=== PATIENT | male | born 1960 | race African-American/Black ===

== ENCOUNTER 2017-12-08 11:02 | Emergency (ER) | payer OTHER ==
[~2017-12-08] VITALS: Ht 167.6 cm; Wt 70.0 kg
[2017-12-08 12:18] LABS: CHLORIDE 108 mEq/L (98-107)
[2017-12-08 12:21] LABS: BASOPHILS % 0.8 % (0.0-2.0); EOSINOPHILS % 1.3 % (0.0-5.0); HEMATOCRIT. 28.5 % (42.0-52.0); HEMOGLOBIN. 9.4 g/dL (14.0-18.0); MEAN CORPUSCULAR HEMOGLOBIN 27.3 pg (28.0-32.0); MEAN CORPUSCULAR VOLUME 82.2 fL (80.0-94.0); MEAN PLATELET VOLUME 7.5 fl (7.4-10.4); MONOCYTES % 5.5 % (2.0-8.0); NEUTROPHILS % 70.4 % (40.0-76.0); PLATELET 195 x1000/uL (130-400); RED BLOOD CELL COUNT 3.46 mill/uL (4.7-6.1); RED CELL DISTRIBUTION WIDTH 14.2 % (11.6-14.6)
[2017-12-08 15:46] VITALS: BP 150/85
== END 2017-12-08 15:47 | disposition home or self-care (01) ==
LOC: ER 11:20
DX: E11.649 Type 2 diabetes mellitus with hypoglycemia without coma (principal); I10 Essential (primary) hypertension
CPT/HCPCS: 36415; 80053; 82962; 85025; 93005; 99285; Z7610

== ENCOUNTER 2018-10-28 22:14 | Inpatient (IN) | payer OTHER ==
[~2018-10-28] VITALS: Ht 163.8 cm; Wt 75.9 kg
[2018-10-28 23:38] LABS: INR 1.1
[2018-10-28 23:39] LABS: CHLORIDE 107 mEq/L (98-107)
[2018-10-28 23:45] LABS: ETHANOL BLOOD < 10 mg/dL
[2018-10-28 23:47] LABS: BASOPHILS % 1.1 % (0.0-2.0); EOSINOPHILS % 3.9 % (0.0-5.0); HEMATOCRIT. 29.6 % (42.0-52.0); HEMOGLOBIN. 9.7 g/dL (14.0-18.0); LYMPHOCYTES % 22.8 % (20.0-50.0); MEAN CORPUSCULAR HEMOGLOBIN 27.7 pg (28.0-32.0); MEAN CORPUSCULAR VOLUME 84.6 fL (80.0-94.0); MEAN PLATELET VOLUME 7.6 fl (7.4-10.4); MONOCYTES % 6.1 % (2.0-8.0); NEUTROPHILS % 66.1 % (40.0-76.0); PLATELET 226 x1000/uL (130-400); RED CELL DISTRIBUTION WIDTH 15.6 % (11.6-14.6)
[2018-10-29 03:15] VITALS: BP 197/94
[2018-10-29 03:43] LABS: CLARITY URINE CLEAR (CLEAR); COLOR URINE YELLOW (YELLOW); KETONES URINE NEGATIVE (NEGATIVE); LEUKOCYTE ESTERASE URINE NEGATIVE (NEGATIVE); NITRITE URINE NEGATIVE (NEGATIVE); OCCULT BLOOD URINE 1+ (NEGATIVE); PH URINE 7.5 (4.5-8.0); PROTEIN URINE 4+ (NEGATIVE); SPECIFIC GRAVITY URINE 1.015 (1.005-1.030); UROBILINOGEN URINE 0.2 E.U./dL (0.2-1.0)
[2018-10-29 03:52] LABS: *AMPHETAMINES SCREEN URINE NEGATIVE (NEGATIVE); *BARBITURATES SCREEN URINE NEGATIVE (NEGATIVE); *BENZODIAZEPINES SCREEN URINE NEGATIVE (NEGATIVE); *COCAINE SCREEN URINE NEGATIVE (NEGATIVE); METHADONE URINE SCREEN NEGATIVE (NEGATIVE)
[2018-10-29 03:53] LABS: CANNABINOID URINE SCREEN NEGATIVE (NEGATIVE); OPIATES URINE SCREEN NEGATIVE (NEGATIVE); PHENCYCLIDINE URINE SCREEN NEGATIVE (NEGATIVE)
[2018-10-29] MEDS ORDERED: AMLODIPINE DAILY (04:06)
[2018-10-29] MEDS ORDERED: ATORVASTATIN DAILY (04:06)
[2018-10-29] MEDS ORDERED: CARVEDILOL (04:06)
[2018-10-29] MEDS ORDERED: [UNRECOGNIZED DRUG - OTHER] (04:06)
[2018-10-29] MEDS ORDERED: [UNRECOGNIZED DRUG - OTHER] (04:06)
[2018-10-29] MEDS ORDERED: ASPI-1159 MT (04:06)
[2018-10-29] MEDS ORDERED: GUAIFENESIN 200MG/10ML SUGAR FREE UDC PO PRN (05:00)
[2018-10-29] MEDS ORDERED: DIPHENHYDRAMINE 50MG/ML VIAL IV PRN (05:00)
[2018-10-29] MEDS ORDERED: DOCUSATE SODIUM 100MG CAPSULE PO PRN (05:00)
[2018-10-29] MEDS ORDERED: ACETAMINOPHEN 325MG TABLET PO PRN (05:00)
[2018-10-29] MEDS ORDERED: ENOXAPARIN 40MG/0.4ML SYR SUBCUT SCH (05:00)
[2018-10-29] MEDS ORDERED: LORAZEPAM 2MG/ML CPJ IV PRN (05:00)
[2018-10-29] MEDS ORDERED: DEXTROSE 50% WATER 50ML SYRINGE IV PRN (05:00)
[2018-10-29] MEDS ORDERED: HYDROMORPHONE HCL/PF 2MG/ML CPJ IV PRN (05:00)
[2018-10-29] MEDS ORDERED: ONDANSETRON HCL 4MG/2ML INJ IV PRN (05:00)
[2018-10-29] MEDS ORDERED: MAGNESIUM/ALUMINUM HYDROXIDE/SIMETHICONE 30ML UDC PO PRN (05:00)
[2018-10-29] MEDS ORDERED: CLONIDINE 0.1MG TABLET PO PRN (05:00)
[2018-10-29] MEDS ORDERED: IPRATROPIUM/ALBUTEROL 0.5-3(2.5)MG/3ML NEB INH PRN (05:00)
[2018-10-29] MEDS ORDERED: HYDROCODONE/ACETAMINOPHEN 5/325MG TABLET PO PRN (05:00)
[2018-10-29] MEDS: HYDRALAZINE 20MG/ML VIAL IV PRN ×2 (05:23→11:50)
[2018-10-29] MEDS: SODIUM CHLORIDE 0.9% INJ 3ML FLUSH IVF SCH ×2 (05:23→11:50)
[2018-10-29] MEDS: BLOOD SUGAR DIAGNOSTIC STRIP TEST SCH ×2 (06:34→11:50)
[2018-10-29] MEDS: INSULIN LISPRO 100 UNITS/ML SUBCUT SCH ×2 (07:37→11:53)
[2018-10-29 07:56] VITALS: BP 171/85
[2018-10-29] MEDS ORDERED: CLONIDINE 0.3MG TABLET PO PRN (08:45)
[2018-10-29] MEDS ORDERED: ENOXAPARIN 30MG/0.3ML SYR SUBCUT SCH (09:00)
[2018-10-29] MEDS ORDERED: AMLODIPINE 10MG TABLET PO SCH (09:00)
[2018-10-29] MEDS ORDERED: ASPIRIN 81MG EC TABLET PO SCH (09:00)
[2018-10-29 09:16] LABS: CREATINE KINASE MB FRACTION 5.3 ng/mL (0.5-3.6)
[2018-10-29 12:02] VITALS: BP 170/74
== END 2018-10-29 14:10 | disposition left against medical advice (07) | DRG 637 ==
LOC: ER 22:14 → 6WST 10-29 00:33 → ENRESERV 10-29 02:34
PROVIDERS: ADMIT Internal Medicine; ATTEND Internal Medicine
DX: E11.649 Type 2 diabetes mellitus with hypoglycemia without coma (principal); G93.41 Metabolic encephalopathy; I13.0 Hypertensive heart and chronic kidney disease with heart failure and stage 1 through stage 4 chronic kidney disease, or unspecified chronic kidney disease; Z53.21 Procedure and treatment not carried out due to patient leaving prior to being seen by health care provider; I25.10 Atherosclerotic heart disease of native coronary artery without angina pectoris; I50.9 Heart failure, unspecified; D64.9 Anemia, unspecified; T50.905A Adverse effect of unspecified drugs, medicaments and biological substances, initial encounter; N18.9 Chronic kidney disease, unspecified; E11.22 Type 2 diabetes mellitus with diabetic chronic kidney disease; Z79.82 Long term (current) use of aspirin; Z79.899 Other long term (current) drug therapy; Z79.4 Long term (current) use of insulin; Y92.89 Other specified places as the place of occurrence of the external cause
CPT/HCPCS: 36415; 71045; 80305; 82550; 82553; 82962; 83605; 83880; 84484; 93005; 99285; G0482; J0360; J1650; J1815

== ENCOUNTER 2018-12-27 11:04 | Emergency (ER) | payer OTHER ==
[~2018-12-27] VITALS: Ht 165.1 cm; Wt 80.0 kg
[~2018-12-27 11:04] MED LIST: AMLODIPINE DAILY; ASPI-1159 MT; ATORVASTATIN DAILY; CARVEDILOL; [UNRECOGNIZED DRUG - OTHER]; [UNRECOGNIZED DRUG - OTHER]
[2018-12-27] MEDS ORDERED: SODIUM CHLORIDE 0.9% 500 ML IV ONE (11:35)
[2018-12-27 11:55] LABS: BASOPHILS % 1.3 % (0.0-2.0); EOSINOPHILS % 0.1 % (0.0-5.0); HEMATOCRIT. 32.3 % (42.0-52.0); HEMOGLOBIN. 10.8 g/dL (14.0-18.0); LYMPHOCYTES % 13.2 % (20.0-50.0); MEAN CORPUSCULAR HEMOGLOBIN 27.7 pg (28.0-32.0); MEAN CORPUSCULAR VOLUME 83.5 fL (80.0-94.0); MEAN PLATELET VOLUME 7.9 fl (7.4-10.4); MONOCYTES % 5.9 % (2.0-8.0); NEUTROPHILS % 79.5 % (40.0-76.0); PLATELET 189 x1000/uL (130-400); RED BLOOD CELL COUNT 3.88 mill/uL (4.7-6.1); RED CELL DISTRIBUTION WIDTH 14.7 % (11.6-14.6)
[2018-12-27 12:01] LABS: CHLORIDE 93 mEq/L (98-107)
[2018-12-27 12:08] LABS: PHOSPHORUS 3.5 mg/dL (2.5-4.9)
[2018-12-27 12:16] LABS: PARTIAL THROMBOPLASTIN TIME 25.9 sec (23.4-31.0)
[2018-12-27] MEDS ORDERED: INSULIN REGULAR (HUMULIN R) 300UNITS/3ML IV ONE (12:30)
[2018-12-27] MEDS ORDERED: HYDRALAZINE 20MG/ML VIAL IV ONE (12:30)
[2018-12-27] MEDS ORDERED: NA PHOS,M-B/NA PHOS,DI-BA ENEMA 118ML PR PRN (12:45)
[2018-12-27] MEDS ORDERED: DOCUSATE SODIUM 100MG CAPSULE PO PRN (12:45)
[2018-12-27] MEDS ORDERED: TRAMADOL 50MG TABLET PO PRN (12:45)
[2018-12-27] MEDS ORDERED: GUAIFENESIN 200MG/10ML SUGAR FREE UDC PO PRN (12:45)
[2018-12-27] MEDS ORDERED: ONDANSETRON HCL 4MG/2ML INJ IV PRN (12:45)
[2018-12-27] MEDS ORDERED: ZOLPIDEM TARTRATE 5MG TABLET PO PRN (12:45)
[2018-12-27] MEDS ORDERED: LORAZEPAM 0.5MG TABLET PO PRN (12:45)
[2018-12-27] MEDS ORDERED: MAGNESIUM/ALUMINUM HYDROXIDE/SIMETHICONE 30ML UDC PO PRN (12:45)
[2018-12-27] MEDS ORDERED: IPRATROPIUM/ALBUTEROL 0.5-3(2.5)MG/3ML NEB INH PRN (12:45)
[2018-12-27] MEDS ORDERED: ACETAMINOPHEN 325MG TABLET PO PRN (12:45)
[2018-12-27] MEDS ORDERED: DIPHENHYDRAMINE 50MG/ML VIAL IV PRN (12:45)
[2018-12-27] MEDS ORDERED: NITROGLYCERIN 0.4MG TABLET SL SL PRN (12:45)
[2018-12-27] MEDS ORDERED: CLONIDINE 0.1MG TABLET PO PRN (12:45)
[2018-12-27 15:03] LABS: CREATINE KINASE MB FRACTION 3.4 ng/mL (0.5-3.6)
[2018-12-27 15:23] VITALS: BP 134/75
[2018-12-27] MEDS ORDERED: DILTIAZEM HCL 60MG TABLET PO SCH (18:00)
[2018-12-27] MEDS ORDERED: FAMOTIDINE 20MG TABLET PO SCH (21:00)
[2018-12-27] MEDS ORDERED: ENOXAPARIN 60MG/0.6ML SYR SUBCUT SCH (21:00)
[2018-12-28] MEDS ORDERED: ASPIRIN 325MG EC TABLET PO SCH (09:00)
== END 2018-12-27 15:30 | disposition short-term general hospital (02) ==
LOC: ER 11:04
DX: I12.0 Hypertensive chronic kidney disease with stage 5 chronic kidney disease or end stage renal disease (principal); E11.22 Type 2 diabetes mellitus with diabetic chronic kidney disease; N18.6 End stage renal disease; E87.8 Other disorders of electrolyte and fluid balance, not elsewhere classified; Z99.2 Dependence on renal dialysis; Z79.82 Long term (current) use of aspirin; Z79.899 Other long term (current) drug therapy; Z98.890 Other specified postprocedural states; Z79.4 Long term (current) use of insulin
CPT/HCPCS: 36415; 71045; 80053; 80061; 82010; 82550; 82553; 82962; 83036; 83735; 83880; 84100; 84484; 85025; 85610; 85730; 93005; 96361; 96374; 96375; 99285; J0360; J1815; J7040

== ENCOUNTER 2019-10-06 22:30 | Emergency (ER) | payer OTHER ==
[~2019-10-06] VITALS: Ht 172.7 cm; Wt 72.0 kg
[~2019-10-06 22:30] MED LIST changes: -ASPI-1159 MT; +ASPI-1393 MT
[2019-10-06 23:55] LABS: BASOPHILS % 1.2 % (0.0-2.0); CHLORIDE 106 mEq/L (98-107); EOSINOPHILS % 2.8 % (0.0-5.0); HEMATOCRIT. 30.5 % (42.0-52.0); HEMOGLOBIN. 10.7 g/dL (14.0-18.0); LYMPHOCYTES % 15.7 % (20.0-50.0); MEAN CORPUSCULAR HEMOGLOBIN 30.2 pg (28.0-32.0); MEAN CORPUSCULAR VOLUME 86.1 fL (80.0-94.0); MEAN PLATELET VOLUME 7.2 fl (7.4-10.4); NEUTROPHILS % 68.3 % (40.0-76.0); PLATELET 230 x1000/uL (130-400); RED BLOOD CELL COUNT 3.54 mill/uL (4.7-6.1); RED CELL DISTRIBUTION WIDTH 14.8 % (11.6-14.6)
[2019-10-06 23:58] LABS: PROTHROMBIN TIME 10.7 sec (9.6-11.0)
[2019-10-07 00:43] VITALS: BP 189/86
== END 2019-10-07 01:33 | disposition home or self-care (01) ==
LOC: ER 22:30 → CANBEDREQ 10-07 01:10 → ER 10-07 01:33
DX: M79.632 Pain in left forearm (principal); M79.641 Pain in right hand; I13.2 Hypertensive heart and chronic kidney disease with heart failure and with stage 5 chronic kidney disease, or end stage renal disease; N18.6 End stage renal disease; I50.9 Heart failure, unspecified; Z99.2 Dependence on renal dialysis; Z79.82 Long term (current) use of aspirin
CPT/HCPCS: 36415; 71045; 83605; 83880; 84484; 93005; 93922; 99284

== ENCOUNTER 2019-10-22 19:50 | Emergency (ER) | payer OTHER ==
[~2019-10-22] VITALS: Ht 172.7 cm; Wt 73.0 kg
[2019-10-22 20:52] LABS: BASOPHILS % 0.8 % (0.0-2.0); EOSINOPHILS % 0.5 % (0.0-5.0); HEMOGLOBIN. 8.6 g/dL (14.0-18.0); LYMPHOCYTES % 16.7 % (20.0-50.0); MEAN CORPUSCULAR HEMOGLOBIN 30.2 pg (28.0-32.0); MEAN CORPUSCULAR VOLUME 87.3 fL (80.0-94.0); MEAN PLATELET VOLUME 7.5 fl (7.4-10.4); MONOCYTES % 8.6 % (2.0-8.0); NEUTROPHILS % 73.4 % (40.0-76.0); PLATELET 174 x1000/uL (130-400); RED BLOOD CELL COUNT 2.86 mill/uL (4.7-6.1); RED CELL DISTRIBUTION WIDTH 14.7 % (11.6-14.6)
[2019-10-22 21:02] LABS: CHLORIDE 100 mEq/L (98-107)
[2019-10-22] MEDS ORDERED: SODIUM CHLORIDE 0.9% 500 ML IV ONE (21:15)
[2019-10-22] MEDS ORDERED: INSULIN LISPRO 100 UNITS/ML SUBCUT ONE (21:15)
[2019-10-23 02:45] VITALS: BP 185/83
== END 2019-10-23 03:45 | disposition home or self-care (01) ==
LOC: ER 19:50
DX: E11.65 Type 2 diabetes mellitus with hyperglycemia (principal); I11.0 Hypertensive heart disease with heart failure; I50.9 Heart failure, unspecified; N28.9 Disorder of kidney and ureter, unspecified; Z99.2 Dependence on renal dialysis; Z79.82 Long term (current) use of aspirin; Z88.8 Allergy status to other drugs, medicaments and biological substances
CPT/HCPCS: 36415; 71045; 80053; 82962; 83880; 84484; 85025; 93005; 96360; 96361; 96372; 99284; J1815; J7040; Z7610

== ENCOUNTER 2019-11-06 14:20 | Inpatient (IN) | payer OTHER ==
[~2019-11-06] VITALS: Ht 177.8 cm; Wt 67.8 kg
[2019-11-06] MEDS ORDERED: LORAZEPAM 2MG/ML CPJ ONE (14:34)
[2019-11-06] MEDS ORDERED: LORAZEPAM 2MG/ML CPJ IV ONE (14:45)
[2019-11-06] MEDS ORDERED: VANCOMYCIN 1 G PREMIX 200 ML IV ONE (14:45)
[2019-11-06] MEDS ORDERED: LEVETIRACETAM 500MG PREMIX 100 ML IV ONE (14:45)
[2019-11-06] MEDS ORDERED: PIPERACILLIN/TAZ 3.375G PREMIX 50 ML IV ONE (14:45)
[2019-11-06] MEDS ORDERED: HYDRALAZINE 20MG/ML VIAL IV ONE (14:45)
[2019-11-06] MEDS ORDERED: PIPERACILLIN/TAZOBACTAM 3.375 G in DEXT 5% WATER 100 ML IV ONE (15:30)
[2019-11-06 15:41] LABS: BASOPHILS % 0.9 % (0.0-2.0); EOSINOPHILS % 0.3 % (0.0-5.0); HEMOGLOBIN. 10.5 g/dL (14.0-18.0); LYMPHOCYTES % 11.1 % (20.0-50.0); MEAN CORPUSCULAR VOLUME 100.4 fL (80.0-94.0); MEAN PLATELET VOLUME 8.9 fl (7.4-10.4); MONOCYTES % 2.6 % (2.0-8.0); NEUTROPHILS % 85.1 % (40.0-76.0); PLATELET 215 x1000/uL (130-400); RED BLOOD CELL COUNT 3.48 mill/uL (4.7-6.1); RED CELL DISTRIBUTION WIDTH 19.8 % (11.6-14.6)
[2019-11-06 15:44] LABS: CHLORIDE 95 mEq/L (98-107)
[2019-11-06 15:46] LABS: INR 1.1; PARTIAL THROMBOPLASTIN TIME 24.9 sec (23.4-31.0); PROTHROMBIN TIME 10.9 sec (9.6-11.0)
[2019-11-06 15:49] LABS: ETHANOL BLOOD < 10 mg/dL
[2019-11-06 15:51] LABS: LDL CHOLESTEROL 72 mg/dL (5-100)
[2019-11-06] MEDS ORDERED: SODIUM CHLORIDE 0.9% 1,000 ML IV ONE (15:55)
[2019-11-06 16:09] LABS: BG BASE EXCESS -11.9 mmol/L (-2.0-2.0); BG CARBOXYHEMOGLOBIN 0.8 % (0.5-1.5); BG DEOXYHEMOGLOBIN 8.4 % (0.0-5.0); BG FRACTION INSPIRED OXYGEN 100; BG HCO3 ACT 16.4 mmol/L (22.0-26.0); BG METHEMOGLOBIN 0.3 % (0.0-1.5); BG OXYGEN SATURATION 91.5 % (92.0-98.5); BG OXYHEMOGLOBIN 90.5 % (94.0-97.0); BG PO2 80.1 mmHg (75.0-100.0); BG SAMPLE SITE RIGHT RADIAL; BG TIDAL VOLUME(mL) 500 mL; BG TOTAL HEMOGLOBIN 11.3 g/dL (12.0-18.0); BG VENT MODE VENT - A/C; BG VENT RATE 14 set
[2019-11-06] MEDS ORDERED: ETOMIDATE 2MG/ML 10ML VIAL IV ONE (16:15)
[2019-11-06] MEDS ORDERED: PROPOFOL 10MG/ML 100ML 100 ML IV ONE (16:15)
[2019-11-06] MEDS ORDERED: VECURONIUM BROMIDE 10 MG/VIAL IV ONE (16:15)
[2019-11-06] MEDS ORDERED: SODIUM CHLORIDE 0.9% 1,000 ML IV STA (16:15)
[2019-11-06 16:26] LABS: CLARITY URINE CLEAR (CLEAR); COLOR URINE YELLOW (YELLOW); KETONES URINE 1+ (NEGATIVE); LEUKOCYTE ESTERASE URINE NEGATIVE (NEGATIVE); NITRITE URINE NEGATIVE (NEGATIVE); OCCULT BLOOD URINE 1+ (NEGATIVE); PROTEIN URINE 3+ (NEGATIVE); SPECIFIC GRAVITY URINE 1.022 (1.005-1.030); UROBILINOGEN URINE 0.2 E.U./dL (0.2-1.0)
[2019-11-06 16:38] LABS: *AMPHETAMINES SCREEN URINE NEGATIVE (NEGATIVE); *BARBITURATES SCREEN URINE NEGATIVE (NEGATIVE); *BENZODIAZEPINES SCREEN URINE NEGATIVE (NEGATIVE); *COCAINE SCREEN URINE NEGATIVE (NEGATIVE); METHADONE URINE SCREEN NEGATIVE (NEGATIVE)
[2019-11-06 16:39] LABS: CANNABINOID URINE SCREEN NEGATIVE (NEGATIVE); OPIATES URINE SCREEN NEGATIVE (NEGATIVE); PHENCYCLIDINE URINE SCREEN NEGATIVE (NEGATIVE)
[2019-11-06] MEDS ORDERED: INSULIN REGULAR (DRIP) 100 UNITS in SODIUM CHLORIDE 0.9% 100 ML IV NR (17:00)
[2019-11-06] MEDS ORDERED: IPRATROPIUM/ALBUTEROL 0.5-3(2.5)MG/3ML NEB HHN SCH (17:45)
[2019-11-06] MEDS ORDERED: NITROGLYCERIN 0.4MG TABLET SL SL PRN (17:45)
[2019-11-06] MEDS ORDERED: MAGNESIUM/ALUMINUM HYDROXIDE/SIMETHICONE 30ML UDC PO PRN (17:45)
[2019-11-06] MEDS ORDERED: DOCUSATE SODIUM 100MG CAPSULE PO PRN (17:45)
[2019-11-06] MEDS ORDERED: AMLODIPINE 10MG TABLET PO SCH (17:45)
[2019-11-06] MEDS ORDERED: IPRATROPIUM/ALBUTEROL 0.5-3(2.5)MG/3ML NEB NEB PRN (17:45)
[2019-11-06] MEDS ORDERED: DIPHENHYDRAMINE 50MG/ML VIAL IV PRN (17:45)
[2019-11-06] MEDS ORDERED: DEXTROSE 50% WATER 50ML SYRINGE IV PRN ×2 (17:45)
[2019-11-06] MEDS ORDERED: GUAIFENESIN 200MG/10ML SUGAR FREE UDC PO PRN (17:45)
[2019-11-06] MEDS ORDERED: ONDANSETRON HCL 4MG/2ML INJ IV PRN (17:45)
[2019-11-06] MEDS ORDERED: ACETAMINOPHEN 325MG TABLET PO PRN (17:45)
[2019-11-06] MEDS ORDERED: PIPERACILLIN/TAZ 3.375G PREMIX 50 ML IV SCH (17:45)
[2019-11-06 18:50] LABS: PHOSPHORUS 5.6 mg/dL (2.5-4.9)
[2019-11-06] MEDS: BLOOD SUGAR DIAGNOSTIC STRIP TEST SCH (19:08)
[2019-11-06] MEDS ORDERED: PROPOFOL 10MG/ML 100ML 100 ML IV PRN (20:20)
[2019-11-06 20:41] LABS: PHOSPHORUS 4.9 mg/dL (2.5-4.9)
[2019-11-06] MEDS ORDERED: FAMOTIDINE 20MG TABLET PO SCH (21:00)
[2019-11-06 21:02] LABS: HEPATITIS B SURFACE ANTIGEN NEGATIVE
[2019-11-07] VITALS (50 sets, daily range): BP systolic 118–190; BP diastolic 69–93
[2019-11-07 00:27] LABS: PHOSPHORUS 3.3 mg/dL (2.5-4.9)
[2019-11-07 00:32] LABS: CREATINE KINASE MB FRACTION 2.6 ng/mL (0.5-3.6)
[2019-11-07] MEDS: BLOOD SUGAR DIAGNOSTIC STRIP TEST SCH ×15 (00:32→23:21)
[2019-11-07] MEDS: HYDRALAZINE HCL 50MG TABLET PO SCH ×2 (00:59→06:01)
[2019-11-07] MEDS ORDERED: METOPROLOL TARTRATE 25MG TABLET PO SCH (01:00)
[2019-11-07] MEDS ORDERED: AMLODIPINE 10MG TABLET PO SCH (01:00)
[2019-11-07] MEDS: INSULIN REGULAR (DRIP) 100 UNITS in SODIUM CHLORIDE 0.9% 99 ML IV SCH ×2 (01:23→05:18)
[2019-11-07] MEDS: PIPERACILLIN/TAZOBACTAM 2.25 G in DEXTROSE 5% WATER 50 ML IV SCH ×3 (01:46→18:29)
[2019-11-07] MEDS: IPRATROPIUM/ALBUTEROL 0.5-3(2.5)MG/3ML NEB HHN SCH ×4 (04:24→16:31)
[2019-11-07 06:21] LABS: CHLORIDE 105 mEq/L (98-107)
[2019-11-07 06:26] LABS: HEMATOCRIT. 29.7 % (42.0-52.0); MEAN CORPUSCULAR HEMOGLOBIN 30.7 pg (28.0-32.0); MEAN CORPUSCULAR VOLUME 91.4 fL (80.0-94.0); MEAN PLATELET VOLUME 8.1 fl (7.4-10.4); PLATELET 169 x1000/uL (130-400); RED BLOOD CELL COUNT 3.25 mill/uL (4.7-6.1); RED CELL DISTRIBUTION WIDTH 18.8 % (11.6-14.6)
[2019-11-07 06:28] LABS: PHOSPHORUS 2.6 mg/dL (2.5-4.9)
[2019-11-07 06:30] LABS: CREATINE KINASE 112 IU/L (39-308)
[2019-11-07 06:32] LABS: CREATINE KINASE MB FRACTION 1.9 ng/mL (0.5-3.6)
[2019-11-07 06:37] LABS: BETA HYDROXYBUTYRATE 0.1 mMol/L (0.0-0.3)
[2019-11-07] MEDS: PROPOFOL 10MG/ML 100ML 100 ML IV PRN ×2 (07:20→19:25)
[2019-11-07 08:07] LABS: BG BASE EXCESS -5.1 mmol/L (-2.0-2.0); BG CARBOXYHEMOGLOBIN 0.3 % (0.5-1.5); BG FRACTION INSPIRED OXYGEN 90; BG HCO3 ACT 18.8 mmol/L (22.0-26.0); BG METHEMOGLOBIN 0.3 % (0.0-1.5); BG OXYHEMOGLOBIN 96.4 % (94.0-97.0); BG PCO2 31.2 mmHg (35.0-45.0); BG PH 7.399 (7.350-7.450); BG PO2 149.2 mmHg (75.0-100.0); BG SAMPLE SITE RIGHT RADIAL; BG TIDAL VOLUME(mL) 500 mL; BG TOTAL HEMOGLOBIN 10.3 g/dL (12.0-18.0); BG VENT MODE VENT - A/C; BG VENT RATE 18 set
[2019-11-07] MEDS ORDERED: SEVELAMER CARBONATE 800 MG TABLET PO SCH (08:20)
[2019-11-07] MEDS ORDERED: FAMOTIDINE 20MG TABLET PO SCH (09:00)
[2019-11-07] MEDS ORDERED: ASPIRIN 325MG EC TABLET PO SCH (09:00)
[2019-11-07] MEDS: FOLIC ACID/VITAMIN B COMP W-C TABLET PO SCH (09:00)
[2019-11-07] MEDS ORDERED: ENOXAPARIN 40MG/0.4ML SYR SUBCUT SCH (09:00)
[2019-11-07] MEDS ORDERED: DEXT 10% WATER 1,000 ML IV SCH (10:00)
[2019-11-07] MEDS: DEXT 10% WATER 1,000 ML IV SCH (10:20)
[2019-11-07] MEDS: PANTOPRAZOLE SODIUM 40 MG/VIAL IV SCH ×2 (12:14→22:37)
[2019-11-07 12:44] LABS: PLATELET ESTIMATE NORMAL
[2019-11-07] MEDS: INSULIN LISPRO 100 UNITS/ML SUBCUT SCH ×3 (13:40→23:24)
[2019-11-07] MEDS: INSULIN GLARGINE UD 100 UNITS/ML SYR SUBCUT SCH (13:41)
[2019-11-07] MEDS: CLONIDINE 0.1MG TABLET PO PRN (14:06)
[2019-11-07] MEDS ORDERED: VANCOMYCIN 1 G PREMIX 200 ML IV NR (15:00)
[2019-11-07 15:32] LABS: HEMATOCRIT 33.5 % (42.0-52.0)
[2019-11-07 16:43] LABS: BG BASE EXCESS -0.9 mmol/L (-2.0-2.0); BG CARBOXYHEMOGLOBIN 0.3 % (0.5-1.5); BG DEOXYHEMOGLOBIN 2.2 % (0.0-5.0); BG HCO3 ACT 21.5 mmol/L (22.0-26.0); BG METHEMOGLOBIN 0.3 % (0.0-1.5); BG OXYGEN SATURATION 97.8 % (92.0-98.5); BG OXYHEMOGLOBIN 97.2 % (94.0-97.0); BG PCO2 28.5 mmHg (35.0-45.0); BG PH 7.496 (7.350-7.450); BG PO2 323.5 mmHg (75.0-100.0); BG SAMPLE SITE RIGHT RADIAL; BG TIDAL VOLUME(mL) 500 mL; BG TOTAL HEMOGLOBIN 10.4 g/dL (12.0-18.0); BG VENT MODE VENT - A/C; BG VENT RATE 18 set
[2019-11-07 23:20] LABS: HEMATOCRIT 30.3 % (42.0-52.0); HEMOGLOBIN 10.1 g/dL (14.0-18.0)
[2019-11-08] VITALS (39 sets, daily range): BP systolic 119–180; BP diastolic 69–108
[2019-11-08] MEDS: PIPERACILLIN/TAZOBACTAM 2.25 G in DEXTROSE 5% WATER 50 ML IV SCH ×3 (01:51→17:09)
[2019-11-08] MEDS: IPRATROPIUM/ALBUTEROL 0.5-3(2.5)MG/3ML NEB HHN SCH ×6 (04:50→23:54)
[2019-11-08 05:03] LABS: BASOPHILS % 0.4 % (0.0-2.0); EOSINOPHILS % 0.3 % (0.0-5.0); HEMATOCRIT. 29.9 % (42.0-52.0); HEMOGLOBIN. 9.9 g/dL (14.0-18.0); LYMPHOCYTES % 9.4 % (20.0-50.0); MEAN CORPUSCULAR HEMOGLOBIN 30.3 pg (28.0-32.0); MEAN CORPUSCULAR VOLUME 91.6 fL (80.0-94.0); MEAN PLATELET VOLUME 7.9 fl (7.4-10.4); MONOCYTES % 5.1 % (2.0-8.0); NEUTROPHILS % 84.8 % (40.0-76.0); PLATELET 150 x1000/uL (130-400); RED BLOOD CELL COUNT 3.27 mill/uL (4.7-6.1); RED CELL DISTRIBUTION WIDTH 19.2 % (11.6-14.6)
[2019-11-08 05:10] LABS: CHLORIDE 105 mEq/L (98-107)
[2019-11-08] MEDS: INSULIN LISPRO 100 UNITS/ML SUBCUT SCH ×4 (05:10→23:37)
[2019-11-08] MEDS: BLOOD SUGAR DIAGNOSTIC STRIP TEST SCH ×4 (05:11→23:36)
[2019-11-08 05:20] LABS: PHOSPHORUS 4.4 mg/dL (2.5-4.9)
[2019-11-08 08:43] LABS: BG BASE EXCESS -0.9 mmol/L (-2.0-2.0); BG CARBOXYHEMOGLOBIN 0.3 % (0.5-1.5); BG DEOXYHEMOGLOBIN 2.1 % (0.0-5.0); BG FRACTION INSPIRED OXYGEN 75; BG METHEMOGLOBIN 0.3 % (0.0-1.5); BG OXYGEN SATURATION 97.9 % (92.0-98.5); BG OXYHEMOGLOBIN 97.3 % (94.0-97.0); BG PH 7.484 (7.350-7.450); BG PO2 343.7 mmHg (75.0-100.0); BG SAMPLE SITE LEFT RADIAL; BG TIDAL VOLUME(mL) 500 mL; BG TOTAL HEMOGLOBIN 8.9 g/dL (12.0-18.0); BG VENT MODE VENT - A/C; BG VENT RATE 18 set
[2019-11-08] MEDS: PANTOPRAZOLE SODIUM 40 MG/VIAL IV SCH ×2 (08:52→21:23)
[2019-11-08] MEDS: FOLIC ACID/VITAMIN B COMP W-C TABLET PO SCH (08:53)
[2019-11-08] MEDS: DEXT 10% WATER 1,000 ML IV SCH (08:53)
[2019-11-08] MEDS: INSULIN GLARGINE UD 100 UNITS/ML SYR SUBCUT SCH (13:47)
[2019-11-08] MEDS: CLONIDINE 0.1MG TABLET PO PRN (13:49)
[2019-11-08] MEDS: PROPOFOL 10MG/ML 100ML 100 ML IV PRN (14:43)
[2019-11-08 16:16] LABS: HEMATOCRIT 28.1 % (42.0-52.0); HEMOGLOBIN 9.5 g/dL (14.0-18.0)
[2019-11-08 22:51] LABS: BG CARBOXYHEMOGLOBIN 0.3 % (0.5-1.5); BG DEOXYHEMOGLOBIN 2.2 % (0.0-5.0); BG FRACTION INSPIRED OXYGEN 40; BG HCO3 ACT 24.7 mmol/L (22.0-26.0); BG METHEMOGLOBIN 0.3 % (0.0-1.5); BG OXYGEN SATURATION 97.8 % (92.0-98.5); BG OXYHEMOGLOBIN 97.2 % (94.0-97.0); BG PCO2 35.8 mmHg (35.0-45.0); BG PH 7.456 (7.350-7.450); BG PO2 184.5 mmHg (75.0-100.0); BG SAMPLE SITE LEFT BRACHIAL; BG TIDAL VOLUME(mL) 500 mL; BG TOTAL HEMOGLOBIN 10.8 g/dL (12.0-18.0); BG VENT MODE VENT - A/C; BG VENT RATE 18 set
[2019-11-08] MEDS: DEXTROSE 50% WATER 50ML SYRINGE IV PRN (23:37)
[2019-11-09] VITALS (44 sets, daily range): BP systolic 107–189; BP diastolic 70–95
[2019-11-09] MEDS: PIPERACILLIN/TAZOBACTAM 2.25 G in DEXTROSE 5% WATER 50 ML IV SCH ×3 (01:02→17:36)
[2019-11-09 01:09] LABS: HEMOGLOBIN 10.4 g/dL (14.0-18.0)
[2019-11-09] MEDS: IPRATROPIUM/ALBUTEROL 0.5-3(2.5)MG/3ML NEB HHN SCH ×5 (03:56→20:11)
[2019-11-09] MEDS: PROPOFOL 10MG/ML 100ML 100 ML IV PRN (04:27)
[2019-11-09] MEDS: INSULIN LISPRO 100 UNITS/ML SUBCUT SCH ×3 (06:00→17:37)
[2019-11-09] MEDS: BLOOD SUGAR DIAGNOSTIC STRIP TEST SCH ×3 (06:24→17:36)
[2019-11-09] MEDS: DEXTROSE 50% WATER 50ML SYRINGE IV PRN (06:30)
[2019-11-09 07:31] LABS: BASOPHILS % 0.3 % (0.0-2.0); EOSINOPHILS % 2.5 % (0.0-5.0); HEMATOCRIT. 29.1 % (42.0-52.0); HEMOGLOBIN. 9.7 g/dL (14.0-18.0); LYMPHOCYTES % 10.1 % (20.0-50.0); MEAN CORPUSCULAR HEMOGLOBIN 30.5 pg (28.0-32.0); MEAN CORPUSCULAR VOLUME 91.8 fL (80.0-94.0); MONOCYTES % 8.5 % (2.0-8.0); NEUTROPHILS % 78.6 % (40.0-76.0); PLATELET 144 x1000/uL (130-400); RED BLOOD CELL COUNT 3.17 mill/uL (4.7-6.1); RED CELL DISTRIBUTION WIDTH 18.4 % (11.6-14.6)
[2019-11-09 07:49] LABS: PHOSPHORUS 4.9 mg/dL (2.5-4.9)
[2019-11-09] MEDS: FOLIC ACID/VITAMIN B COMP W-C TABLET PO SCH (08:23)
[2019-11-09] MEDS: PANTOPRAZOLE SODIUM 40 MG/VIAL IV SCH ×2 (08:24→20:49)
[2019-11-09] MEDS: CLONIDINE 0.1MG TABLET PO PRN (09:14)
[2019-11-09] MEDS: DEXT 10% WATER 1,000 ML IV SCH (09:15)
[2019-11-09] MEDS: INSULIN GLARGINE UD 100 UNITS/ML SYR SUBCUT SCH (10:00)
[2019-11-09 12:22] LABS: BG BASE EXCESS 1.1 mmol/L (-2.0-2.0); BG DEOXYHEMOGLOBIN 2.2 % (0.0-5.0); BG FRACTION INSPIRED OXYGEN 35; BG HCO3 ACT 25.1 mmol/L (22.0-26.0); BG METHEMOGLOBIN 0.3 % (0.0-1.5); BG OXYGEN SATURATION 97.8 % (92.0-98.5); BG OXYHEMOGLOBIN 97.5 % (94.0-97.0); BG PCO2 37.5 mmHg (35.0-45.0); BG PH 7.443 (7.350-7.450); BG PO2 183.3 mmHg (75.0-100.0); BG SAMPLE SITE RIGHT RADIAL; BG TIDAL VOLUME(mL) 500 mL; BG TOTAL HEMOGLOBIN 10.7 g/dL (12.0-18.0); BG VENT MODE VENT - A/C; BG VENT RATE 18 set
[2019-11-09] MEDS ORDERED: PROPOFOL 10MG/ML 100ML 100 ML IV PRN (13:30)
[2019-11-09] MEDS ORDERED: CLONIDINE 0.3MG TABLET PO PRN (14:30)
[2019-11-09] MEDS ORDERED: HYDRALAZINE 20MG/ML VIAL IV SCH (21:33)
[2019-11-09] MEDS ORDERED: HYDRALAZINE 20MG/ML VIAL IV PRN (22:00)
[2019-11-10] MEDS ORDERED: INSULIN GLARGINE UD 100 UNITS/ML SYR SUBCUT SCH ×2 (10:00)
== END 2019-11-09 22:30 | disposition short-term general hospital (02) | DRG 871 ==
LOC: ER 14:25 → CVICU 16:54 → EDBEDREQ 17:00 → EDBEDREQSVC 17:00 → ENRESERV 22:43
PROVIDERS: ADMIT Internal Medicine; ATTEND Internal Medicine
PROC: 5A1D70Z Performance of Urinary Filtration, Intermittent, Less than 6 Hours Per Day (ICD-10-PCS; principal; 2019-11-06)
PROC: 5A1D70Z Performance of Urinary Filtration, Intermittent, Less than 6 Hours Per Day (ICD-10-PCS; 2019-11-07)
DX: A41.9 Sepsis, unspecified organism (principal); E11.10 Type 2 diabetes mellitus with ketoacidosis without coma; G92 Toxic encephalopathy; N18.6 End stage renal disease; J96.01 Acute respiratory failure with hypoxia; E44.1 Mild protein-calorie malnutrition; I50.30 Unspecified diastolic (congestive) heart failure; I13.2 Hypertensive heart and chronic kidney disease with heart failure and with stage 5 chronic kidney disease, or end stage renal disease; K92.0 Hematemesis; R74.0 Nonspecific elevation of levels of transaminase and lactic acid dehydrogenase [LDH]; E83.39 Other disorders of phosphorus metabolism; E78.5 Hyperlipidemia, unspecified; E11.22 Type 2 diabetes mellitus with diabetic chronic kidney disease; E87.5 Hyperkalemia; E83.51 Hypocalcemia; D63.8 Anemia in other chronic diseases classified elsewhere; Z79.4 Long term (current) use of insulin; Z86.73 Personal history of transient ischemic attack (TIA), and cerebral infarction without residual deficits; Z99.2 Dependence on renal dialysis; Z79.82 Long term (current) use of aspirin; Z68.21 Body mass index [BMI] 21.0-21.9, adult; Z79.01 Long term (current) use of anticoagulants
CPT/HCPCS: 36415; 36600; 70551; 71045; 80048; 80053; 80061; 80202; 80305; 80320; 81003; 82010; 82270; 82375; 82550; 82553; 82805; 82962; 83036; 83605; 83721; 83735; 83880; 84100; 84145; 84478; 84484; 85014; 85018; 85025; 86803; 87070; 87340; 93005; 93306; 96361; 96365; 96368; 96375; 99291; C9113; J0360; J1815; J1953; J2060; J2405; J2543; J2704; J3370; J7030; J7040; J7050; J7060; J7620; A4315; G0480

== ENCOUNTER 2019-12-04 15:12 | Emergency (ER) | payer OTHER ==
[~2019-12-04] VITALS: Ht 172.7 cm; Wt 70.0 kg
[~2019-12-04 15:12] MED LIST changes: -ASPI-1393 MT; +ASPI-1497 MT
[2019-12-04 16:53] LABS: HEMATOCRIT. 32.5 % (42.0-52.0); HEMOGLOBIN. 10.5 g/dL (14.0-18.0); MEAN CORPUSCULAR HEMOGLOBIN 30.7 pg (28.0-32.0); MEAN CORPUSCULAR VOLUME 95.2 fL (80.0-94.0); MEAN PLATELET VOLUME 6.4 fl (7.4-10.4); PLATELET 270 x1000/uL (130-400); RED BLOOD CELL COUNT 3.41 mill/uL (4.7-6.1); RED CELL DISTRIBUTION WIDTH 19.4 % (11.6-14.6)
[2019-12-04 16:55] LABS: CHLORIDE 111 mEq/L (98-107)
[2019-12-04 17:23] LABS: PLATELET ESTIMATE NORMAL
[2019-12-04 19:58] VITALS: BP 132/71
== END 2019-12-04 22:22 | disposition home or self-care (01) ==
LOC: ER 15:12
DX: E11.649 Type 2 diabetes mellitus with hypoglycemia without coma (principal); E11.22 Type 2 diabetes mellitus with diabetic chronic kidney disease; I13.11 Hypertensive heart and chronic kidney disease without heart failure, with stage 5 chronic kidney disease, or end stage renal disease; N18.6 End stage renal disease; Z86.73 Personal history of transient ischemic attack (TIA), and cerebral infarction without residual deficits; Z99.2 Dependence on renal dialysis; Z79.4 Long term (current) use of insulin; Z79.82 Long term (current) use of aspirin
CPT/HCPCS: 36415; 80053; 82962; 85025; 93005; 99284

== ENCOUNTER 2020-02-13 18:53 | Inpatient (IN) | payer OTHER ==
[~2020-02-13] VITALS: Ht 162.6 cm; Wt 68.0 kg
[2020-02-13 20:13] LABS: HEMATOCRIT. 37.7 % (42.0-52.0); MEAN CORPUSCULAR HEMOGLOBIN 28.5 pg (28.0-32.0); MEAN CORPUSCULAR VOLUME 89.6 fL (80.0-94.0); MEAN PLATELET VOLUME 8.2 fl (7.4-10.4); PLATELET 189 x1000/uL (130-400); RED BLOOD CELL COUNT 4.21 mill/uL (4.7-6.1); RED CELL DISTRIBUTION WIDTH 16.8 % (11.6-14.6)
[2020-02-13 20:15] LABS: CHLORIDE 99 mEq/L (98-107)
[2020-02-13 20:17] LABS: PROTHROMBIN TIME 11.2 sec (9.6-11.0)
[2020-02-13 20:19] LABS: ETHANOL BLOOD < 10 mg/dL
[2020-02-13] MEDS ORDERED: SODIUM CHLORIDE 0.9% 1,000 ML IV ONE (20:45)
[2020-02-13] MEDS ORDERED: INSULIN REGULAR (DRIP) 100 UNITS in SODIUM CHLORIDE 0.9% 99 ML IV ONE ×2 (20:45→21:00)
[2020-02-13 21:07] LABS: PLATELET ESTIMATE NORMAL
[2020-02-13 22:59] LABS: PHOSPHORUS 4.7 mg/dL (2.5-4.9)
[2020-02-14] MEDS ORDERED: ALBUTEROL (0.083%) 2.5MG/3ML NEB HHN PRN (06:30)
[2020-02-14] MEDS ORDERED: INSULIN REGULAR (DRIP) 100 UNITS in SODIUM CHLORIDE 0.9% 99 ML IV ONE (07:00)
[2020-02-14] MEDS: CLONIDINE 0.2MG TABLET PO PRN ×2 (07:07→17:05)
[2020-02-14 10:27] LABS: HEMATOCRIT 32.1 % (42.0-52.0); HEMOGLOBIN 10.7 g/dL (14.0-18.0); MEAN CORPUSCULAR HEMOGLOBIN 28.5 pg (28.0-32.0); MEAN CORPUSCULAR VOLUME 85.1 fL (80.0-94.0); PLATELET 167 x1000/uL (130-400); RED BLOOD CELL COUNT 3.77 mill/uL (4.7-6.1); RED CELL DISTRIBUTION WIDTH 16.7 % (11.6-14.6)
[2020-02-14] MEDS ORDERED: DEXT 5%/0.45% NACL 1000ML 1,000 ML IV SCH (11:00)
[2020-02-14] MEDS ORDERED: ACETAMINOPHEN 325MG TABLET PO PRN (11:00)
[2020-02-14] MEDS ORDERED: ONDANSETRON HCL 4MG/2ML INJ IV PRN (11:00)
[2020-02-14] MEDS ORDERED: PIPERACILLIN/TAZ 3.375G PREMIX 50 ML IV NR (11:15)
[2020-02-14] MEDS: PANTOPRAZOLE SODIUM 40 MG/VIAL IV SCH (11:32)
[2020-02-14 11:39] LABS: PHOSPHORUS 3.8 mg/dL (2.5-4.9)
[2020-02-14] MEDS ORDERED: DEXTROSE 50% WATER 50ML SYRINGE IV PRN (12:00)
[2020-02-14] MEDS: INSULIN LISPRO 100 UNITS/ML SUBCUT SCH ×3 (13:20→22:53)
[2020-02-14] MEDS: BLOOD SUGAR DIAGNOSTIC STRIP TEST SCH ×3 (13:52→21:00)
[2020-02-14] MEDS: HYDRALAZINE HCL 100MG TABLET PO SCH ×2 (13:54→23:00)
[2020-02-14] MEDS: ZINC SULFATE 220 MG ( 50 ) CAPSULE PO SCH (19:15)
[2020-02-14] MEDS: ASCORBIC ACID 500 MG TABLET PO SCH (19:15)
[2020-02-14] MEDS: AMLODIPINE 5MG TABLET PO SCH (20:26)
[2020-02-14] MEDS ORDERED: HYDROXYCHLOROQUINE SULFATE 200MG TABLET PO SCH (21:00)
[2020-02-14 21:15] VITALS: BP 213/86
[2020-02-14] MEDS ORDERED: INSULIN GLARGINE UD 100 UNITS/ML SYR SUBCUT SCH (23:00)
[2020-02-15] VITALS (7 sets, daily range): BP systolic 135–204; BP diastolic 70–88
[2020-02-15] MEDS: CLONIDINE 0.2MG TABLET PO PRN (00:32)
[2020-02-15] MEDS: PIPERACILLIN/TAZOBACTAM 2.25 G in DEXTROSE 5% WATER 50 ML IV SCH ×4 (00:32→18:49)
[2020-02-15] MEDS ORDERED: COR12 MT (04:27)
[2020-02-15] MEDS ORDERED: INSU100V3 SUBCUT (04:27)
[2020-02-15] MEDS ORDERED: FURO-151 MT (04:27)
[2020-02-15] MEDS ORDERED: AMLO5TAB4 MT (04:27)
[2020-02-15] MEDS ORDERED: OMEP-265 MT (04:27)
[2020-02-15] MEDS ORDERED: NPH,100I SQ (04:27)
[2020-02-15] MEDS ORDERED: VITA1CAP MT (04:27)
[2020-02-15] MEDS ORDERED: NEPVIT MT (04:27)
[2020-02-15] MEDS ORDERED: CHOL100046 PO (04:27)
[2020-02-15] MEDS: HYDRALAZINE HCL 100MG TABLET PO SCH (05:24)
[2020-02-15] MEDS: BLOOD SUGAR DIAGNOSTIC STRIP TEST SCH ×4 (07:02→20:26)
[2020-02-15 07:45] LABS: BASOPHILS % 0.9 % (0.0-2.0); EOSINOPHILS % 0.4 % (0.0-5.0); HEMATOCRIT. 34.7 % (42.0-52.0); HEMOGLOBIN. 11.4 g/dL (14.0-18.0); LYMPHOCYTES % 15.3 % (20.0-50.0); MEAN CORPUSCULAR HEMOGLOBIN 28.4 pg (28.0-32.0); MEAN CORPUSCULAR VOLUME 86.6 fL (80.0-94.0); MEAN PLATELET VOLUME 8.4 fl (7.4-10.4); NEUTROPHILS % 78.4 % (40.0-76.0); PLATELET 187 x1000/uL (130-400); RED BLOOD CELL COUNT 4.01 mill/uL (4.7-6.1); RED CELL DISTRIBUTION WIDTH 16.8 % (11.6-14.6)
[2020-02-15] MEDS: INSULIN LISPRO 100 UNITS/ML SUBCUT SCH ×4 (08:10→20:26)
[2020-02-15] MEDS ORDERED: HYDROXYCHLOROQUINE SULFATE 200MG TABLET PO SCH (09:00)
[2020-02-15] MEDS: PANTOPRAZOLE SODIUM 40 MG/VIAL IV SCH (09:42)
[2020-02-15] MEDS: ZINC SULFATE 220 MG ( 50 ) CAPSULE PO SCH (09:43)
[2020-02-15] MEDS: AMLODIPINE 5MG TABLET PO SCH ×2 (09:43→21:30)
[2020-02-15] MEDS: ASCORBIC ACID 500 MG TABLET PO SCH ×2 (09:43→18:49)
[2020-02-15] MEDS: LOSARTAN POTASSIUM 100 MG TABLET PO SCH (09:44)
[2020-02-15] MEDS: INSULIN GLARGINE UD 100 UNITS/ML SYR SUBCUT SCH ×2 (12:50→21:32)
[2020-02-15] MEDS: MINOXIDIL 2.5MG TABLET PO SCH ×2 (13:03→21:31)
[2020-02-15] MEDS: THIAMINE HCL 100MG TABLET PO SCH (17:46)
[2020-02-15] MEDS: HYDROXYCHLOROQUINE SULFATE 200MG TABLET PO SCH (17:46)
[2020-02-16] MEDS: ASCORBIC ACID 500 MG TABLET PO SCH ×3 (00:07→12:10)
[2020-02-16] MEDS: PIPERACILLIN/TAZOBACTAM 2.25 G in DEXTROSE 5% WATER 50 ML IV SCH ×4 (00:07→17:00)
[2020-02-16 04:00] VITALS: BP 141/73
[2020-02-16 06:21] LABS: BASOPHILS % 0.5 % (0.0-2.0); EOSINOPHILS % 1.8 % (0.0-5.0); HEMATOCRIT. 33.3 % (42.0-52.0); LYMPHOCYTES % 12.6 % (20.0-50.0); MEAN CORPUSCULAR HEMOGLOBIN 28.4 pg (28.0-32.0); MEAN CORPUSCULAR VOLUME 85.4 fL (80.0-94.0); MEAN PLATELET VOLUME 8.2 fl (7.4-10.4); MONOCYTES % 5.3 % (2.0-8.0); NEUTROPHILS % 79.8 % (40.0-76.0); PLATELET 187 x1000/uL (130-400); RED BLOOD CELL COUNT 3.89 mill/uL (4.7-6.1); RED CELL DISTRIBUTION WIDTH 16.9 % (11.6-14.6)
[2020-02-16 06:29] LABS: PHOSPHORUS 4.6 mg/dL (2.5-4.9)
[2020-02-16] MEDS: BLOOD SUGAR DIAGNOSTIC STRIP TEST SCH ×3 (07:06→17:00)
[2020-02-16 08:00] VITALS: BP 148/78
[2020-02-16] MEDS: INSULIN LISPRO 100 UNITS/ML SUBCUT SCH ×3 (08:10→18:15)
[2020-02-16] MEDS ORDERED: FAMOTIDINE 20MG/2ML VIAL IV SCH (09:00)
[2020-02-16] MEDS: HYDROXYCHLOROQUINE SULFATE 200MG TABLET PO SCH ×2 (09:21→17:00)
[2020-02-16] MEDS: ZINC SULFATE 220 MG ( 50 ) CAPSULE PO SCH (09:21)
[2020-02-16] MEDS: MINOXIDIL 2.5MG TABLET PO SCH (09:21)
[2020-02-16] MEDS: LOSARTAN POTASSIUM 100 MG TABLET PO SCH (09:21)
[2020-02-16] MEDS: AMLODIPINE 5MG TABLET PO SCH (09:21)
[2020-02-16] MEDS: THIAMINE HCL 100MG TABLET PO SCH ×2 (09:22→17:00)
[2020-02-16] MEDS: INSULIN GLARGINE UD 100 UNITS/ML SYR SUBCUT SCH (10:16)
[2020-02-16 12:00] VITALS: BP 145/83
[2020-02-16 16:00] VITALS: BP 150/88
[2020-02-16] MEDS ORDERED: ASCORBIC ACID 500 MG TABLET PO SCH (17:00)
[2020-02-16 22:01] VITALS: BP 131/71
== END 2020-02-16 22:25 | disposition short-term general hospital (02) | DRG 637 ==
LOC: ER 18:53 → 7WST 23:30 → EDBEDREQTM 23:34 → EDBEDREQ 23:34 → EDBEDREQTM 02-14 15:42 → EDBEDREQSVC 02-14 15:42 → EDBEDREQ 02-14 17:48 → ENRESERV 02-14 19:44 → 7WST 02-14 22:29 → 6WST 02-16 22:04
PROVIDERS: ADMIT Internal Medicine; ATTEND Internal Medicine
PROC: 5A1D70Z Performance of Urinary Filtration, Intermittent, Less than 6 Hours Per Day (ICD-10-PCS; principal; 2020-02-14)
PROC: 5A1D70Z Performance of Urinary Filtration, Intermittent, Less than 6 Hours Per Day (ICD-10-PCS; 2020-02-16)
DX: E10.10 Type 1 diabetes mellitus with ketoacidosis without coma (principal); J96.01 Acute respiratory failure with hypoxia; J15.9 Unspecified bacterial pneumonia; N18.6 End stage renal disease; G93.41 Metabolic encephalopathy; E44.1 Mild protein-calorie malnutrition; I13.11 Hypertensive heart and chronic kidney disease without heart failure, with stage 5 chronic kidney disease, or end stage renal disease; E10.22 Type 1 diabetes mellitus with diabetic chronic kidney disease; D63.8 Anemia in other chronic diseases classified elsewhere; E86.0 Dehydration; E87.70 Fluid overload, unspecified; E83.39 Other disorders of phosphorus metabolism; E78.5 Hyperlipidemia, unspecified; D72.810 Lymphocytopenia; Z20.828 Contact with and (suspected) exposure to other viral communicable diseases; Z60.2 Problems related to living alone; M19.90 Unspecified osteoarthritis, unspecified site; Z68.25 Body mass index [BMI] 25.0-25.9, adult; Z79.899 Other long term (current) drug therapy; Z79.4 Long term (current) use of insulin; Z86.73 Personal history of transient ischemic attack (TIA), and cerebral infarction without residual deficits; Z99.2 Dependence on renal dialysis; Z79.82 Long term (current) use of aspirin
CPT/HCPCS: 36415; 71045; 80048; 80053; 80320; 82728; 82962; 83605; 83615; 83735; 83880; 83930; 84100; 84145; 84484; 85025; 85027; 85379; 86140; 87635; 93005; 96361; 96365; 96366; 96367; 96372; 96375; 99291; C9113; J1815; J2543; J3490; J7050; J7060; G0480

== ENCOUNTER 2020-05-28 18:49 | Inpatient (IN) | payer OTHER ==
[~2020-05-28] VITALS: Ht 162.6 cm; Wt 73.0 kg
[~2020-05-28 18:49] MED LIST changes: +AMLO5TAB4 MT; -AMLODIPINE DAILY; -ATORVASTATIN DAILY; -CARVEDILOL; +CHOL100046 PO; +COR12 MT; +FURO-151 MT; +INSU100V3 SUBCUT; +NEPVIT MT; +NPH,100I SQ; +OMEP-265 MT; +VITA1CAP MT; -[UNRECOGNIZED DRUG - OTHER]; -[UNRECOGNIZED DRUG - OTHER]
[2020-05-28 20:10] LABS: BASOPHILS % 2.4 % (0.0-2.0); EOSINOPHILS % 1.5 % (0.0-5.0); LYMPHOCYTES % 20.3 % (20.0-50.0); MEAN PLATELET VOLUME 7.3 fl (7.4-10.4); MONOCYTES % 10.4 % (2.0-8.0); NEUTROPHILS % 65.4 % (40.0-76.0); PLATELET 196 x1000/uL (130-400); RED CELL DISTRIBUTION WIDTH 16.6 % (11.6-14.6)
[2020-05-28 20:19] LABS: CHLORIDE 105 mEq/L (98-107)
[2020-05-28 20:20] LABS: HEMOGLOBIN. 6.7 g/dL (14.0-18.0)
[2020-05-28 20:21] LABS: HEMATOCRIT. 19.8 % (42.0-52.0)
[2020-05-28 20:23] LABS: INR 1.1; PROTHROMBIN TIME 11.3 sec (9.6-11.0)
[2020-05-28] MEDS ORDERED: POTASSIUM CHLORIDE 20MEQ TABLET SR PO ONE (21:00)
[2020-05-28] MEDS ORDERED: INSULIN REGULAR (HUMULIN R) 300UNITS/3ML SUBCUT ONE (21:00)
[2020-05-29] VITALS (26 sets, daily range): BP systolic 138–177; BP diastolic 78–91
[2020-05-29] MEDS ORDERED: SODI15OR5 PO (03:24)
[2020-05-29] MEDS ORDERED: CALC667T2 MT (03:24)
[2020-05-29] MEDS ORDERED: LOSA1TAB37 MT (03:24)
[2020-05-29] MEDS ORDERED: LIP40 MT (03:24)
[2020-05-29] MEDS ORDERED: DIPHENHYDRAMINE 50MG/ML VIAL IV PRN (05:15)
[2020-05-29] MEDS ORDERED: MORPHINE SULFATE 2 MG/ML CPJ (NOT FOR IM USE) IV PRN (05:15)
[2020-05-29] MEDS: BLOOD SUGAR DIAGNOSTIC STRIP TEST SCH ×4 (05:58→21:00)
[2020-05-29 08:14] LABS: HEMATOCRIT 23.4 % (42.0-52.0); HEMOGLOBIN 7.9 g/dL (14.0-18.0); MEAN CORPUSCULAR HEMOGLOBIN 28.7 pg (28.0-32.0); MEAN CORPUSCULAR VOLUME 85.3 fL (80.0-94.0); PLATELET 191 x1000/uL (130-400); RED BLOOD CELL COUNT 2.74 mill/uL (4.7-6.1); RED CELL DISTRIBUTION WIDTH 15.9 % (11.6-14.6)
[2020-05-29] MEDS: LOSARTAN POTASSIUM 25 MG TABLET PO SCH ×2 (09:55→20:56)
[2020-05-29] MEDS: AMLODIPINE 5MG TABLET PO SCH (09:55)
[2020-05-29] MEDS: INSULIN LISPRO 100 UNITS/ML SUBCUT SCH ×4 (09:55→22:21)
[2020-05-29] MEDS: CALCIUM ACETATE 667MG CAPSULE PO SCH ×3 (09:55→16:39)
[2020-05-29] MEDS: CARVEDILOL 12.5MG TABLET PO SCH ×2 (09:56→22:15)
[2020-05-29] MEDS: FUROSEMIDE 40MG TABLET PO SCH (09:56)
[2020-05-29] MEDS: FOLIC ACID/VITAMIN B COMP W-C TABLET PO SCH (09:56)
[2020-05-29] MEDS ORDERED: INSULIN GLARGINE UD 100 UNITS/ML SYR SUBCUT SCH (10:00)
[2020-05-29] MEDS: INSULIN GLARGINE UD 100 UNITS/ML SYR SUBCUT SCH ×2 (10:43→22:22)
[2020-05-29] MEDS: PANTOPRAZOLE SODIUM 40 MG/VIAL IV SCH ×2 (12:42→22:15)
[2020-05-29] MEDS: SUCRALFATE 1 G/10 ML UDC PO SCH ×3 (12:42→22:20)
[2020-05-29 19:24] LABS: CHLORIDE 108 mEq/L (98-107)
[2020-05-29 19:32] LABS: BASOPHILS % 1.9 % (0.0-2.0); EOSINOPHILS % 1.7 % (0.0-5.0); HEMATOCRIT. 31.6 % (42.0-52.0); HEMOGLOBIN. 10.6 g/dL (14.0-18.0); LYMPHOCYTES % 17.4 % (20.0-50.0); MEAN CORPUSCULAR HEMOGLOBIN 28.5 pg (28.0-32.0); MEAN CORPUSCULAR VOLUME 84.9 fL (80.0-94.0); MEAN PLATELET VOLUME 7.8 fl (7.4-10.4); MONOCYTES % 6.7 % (2.0-8.0); NEUTROPHILS % 72.3 % (40.0-76.0); PLATELET 240 x1000/uL (130-400); RED BLOOD CELL COUNT 3.72 mill/uL (4.7-6.1); RED CELL DISTRIBUTION WIDTH 16.4 % (11.6-14.6)
[2020-05-29] MEDS ORDERED: SORBITOL 70% SOLN 30ML PO SCH (21:00)
[2020-05-29] MEDS: ATORVASTATIN CALCIUM 40MG TABLET PO SCH (22:15)
[2020-05-30] VITALS (10 sets, daily range): BP systolic 130–179; BP diastolic 68–112
[2020-05-30] MEDS ORDERED: SORBITOL 70% SOLN 30ML PO SCH (06:00)
[2020-05-30] MEDS: SUCRALFATE 1 G/10 ML UDC PO SCH ×4 (06:18→20:26)
[2020-05-30] MEDS: BLOOD SUGAR DIAGNOSTIC STRIP TEST SCH ×4 (06:18→20:26)
[2020-05-30] MEDS: DEXTROSE 50% WATER 50ML SYRINGE IV PRN ×3 (06:29→14:04)
[2020-05-30 07:14] LABS: BASOPHILS % 2.1 % (0.0-2.0); EOSINOPHILS % 3.5 % (0.0-5.0); HEMATOCRIT. 35.3 % (42.0-52.0); HEMOGLOBIN. 11.8 g/dL (14.0-18.0); LYMPHOCYTES % 24.2 % (20.0-50.0); MEAN CORPUSCULAR HEMOGLOBIN 28.3 pg (28.0-32.0); MEAN CORPUSCULAR VOLUME 84.5 fL (80.0-94.0); MEAN PLATELET VOLUME 7.8 fl (7.4-10.4); MONOCYTES % 8.8 % (2.0-8.0); NEUTROPHILS % 61.4 % (40.0-76.0); PLATELET 287 x1000/uL (130-400); RED BLOOD CELL COUNT 4.17 mill/uL (4.7-6.1); RED CELL DISTRIBUTION WIDTH 16.3 % (11.6-14.6)
[2020-05-30] MEDS: INSULIN LISPRO 100 UNITS/ML SUBCUT SCH ×4 (07:20→20:26)
[2020-05-30] MEDS: CALCIUM ACETATE 667MG CAPSULE PO SCH ×3 (07:20→18:16)
[2020-05-30 07:28] LABS: CHLORIDE 111 mEq/L (98-107)
[2020-05-30 07:42] LABS: PHOSPHORUS 3.4 mg/dL (2.5-4.9)
[2020-05-30] MEDS: FUROSEMIDE 40MG TABLET PO SCH (09:00)
[2020-05-30] MEDS: FOLIC ACID/VITAMIN B COMP W-C TABLET PO SCH (09:00)
[2020-05-30] MEDS: LOSARTAN POTASSIUM 25 MG TABLET PO SCH ×2 (09:00→20:26)
[2020-05-30] MEDS: AMLODIPINE 5MG TABLET PO SCH (09:00)
[2020-05-30] MEDS ORDERED: NA PHOS,M-B/NA PHOS,DI-BA ENEMA 118ML PR SCH (09:00)
[2020-05-30] MEDS: PANTOPRAZOLE SODIUM 40 MG/VIAL IV SCH ×2 (09:00→20:26)
[2020-05-30] MEDS: CARVEDILOL 12.5MG TABLET PO SCH ×3 (09:00→20:27)
[2020-05-30] MEDS ORDERED: FENTANYL CITRATE/PF 50MCG/ML 2ML VIAL ONE (11:51)
[2020-05-30] MEDS ORDERED: MIDAZOLAM HCL 5 MG/5 ML VIAL ONE (11:51)
[2020-05-30] MEDS ORDERED: MIDAZOLAM HCL 2 MG/2 ML VIAL IV PRN (11:52)
[2020-05-30] MEDS ORDERED: DEXT 5%/0.45% NACL 1000ML 1,000 ML IV SCH (14:15)
[2020-05-30] MEDS ORDERED: DEXT 10% WATER 1,000 ML IV SCH (16:00)
[2020-05-30] MEDS ORDERED: CLONIDINE 0.1MG TABLET PO NR (19:08)
[2020-05-30] MEDS: ATORVASTATIN CALCIUM 40MG TABLET PO SCH (20:26)
[2020-05-31] MEDS ORDERED: EPOETIN ALFA 10000UNITS/ML VIAL SUBCUT SCH (21:00)
== END 2020-05-30 21:00 | disposition short-term general hospital (02) | DRG 374 ==
LOC: ER 18:49 → 3WST 22:21 → ENRESERV 22:36
PROVIDERS: ADMIT Internal Medicine; ATTEND Internal Medicine
PROC: 30233N1 Transfusion of Nonautologous Red Blood Cells into Peripheral Vein, Percutaneous Approach (ICD-10-PCS; 2020-05-28)
PROC: 0DB68ZX Excision of Stomach, Via Natural or Artificial Opening Endoscopic, Diagnostic (ICD-10-PCS; principal; 2020-05-30)
PROC: 0DBK8ZX Excision of Ascending Colon, Via Natural or Artificial Opening Endoscopic, Diagnostic (ICD-10-PCS; 2020-05-30)
DX: C18.9 Malignant neoplasm of colon, unspecified (principal); K29.71 Gastritis, unspecified, with bleeding; E43 Unspecified severe protein-calorie malnutrition; N18.6 End stage renal disease; I13.2 Hypertensive heart and chronic kidney disease with heart failure and with stage 5 chronic kidney disease, or end stage renal disease; E10.65 Type 1 diabetes mellitus with hyperglycemia; E10.22 Type 1 diabetes mellitus with diabetic chronic kidney disease; Z68.27 Body mass index [BMI] 27.0-27.9, adult; E87.6 Hypokalemia; E83.39 Other disorders of phosphorus metabolism; E78.5 Hyperlipidemia, unspecified; F03.90 Unspecified dementia, unspecified severity, without behavioral disturbance, psychotic disturbance, mood disturbance, and anxiety; I50.9 Heart failure, unspecified; K44.9 Diaphragmatic hernia without obstruction or gangrene; K52.9 Noninfective gastroenteritis and colitis, unspecified; K59.00 Constipation, unspecified; K64.8 Other hemorrhoids; K80.20 Calculus of gallbladder without cholecystitis without obstruction; N28.1 Cyst of kidney, acquired; D50.0 Iron deficiency anemia secondary to blood loss (chronic); Z20.828 Contact with and (suspected) exposure to other viral communicable diseases; Z79.4 Long term (current) use of insulin; Z86.73 Personal history of transient ischemic attack (TIA), and cerebral infarction without residual deficits; Z79.82 Long term (current) use of aspirin; Z99.2 Dependence on renal dialysis; Q27.33 Arteriovenous malformation of digestive system vessel
CPT/HCPCS: 36415; 71045; 74176; 76700; 80048; 80053; 82270; 82962; 83036; 83735; 84100; 84484; 85025; 85027; 86850; 86900; 86920; 88305; 88313; 93005; 96372; 99152; 99285; C9113; J1815; J2250; J3010; P9016; G0500

== ENCOUNTER 2020-06-04 20:45 | Inpatient (IN) | payer OTHER ==
[~2020-06-04] VITALS: Ht 162.6 cm; Wt 79.8 kg
[~2020-06-04 20:45] MED LIST changes: +CALC667T2 MT; +LIP40 MT; +LOSA1TAB37 MT; +SODI15OR5 PO
[2020-06-04] MEDS ORDERED: SODIUM CHLORIDE 0.9% 1,000 ML IV ONE (22:03)
[2020-06-04 22:34] LABS: BG BASE EXCESS -4.9 mmol/L (-2.0-2.0); BG CARBOXYHEMOGLOBIN 0.1 % (0.5-1.5); BG DEOXYHEMOGLOBIN 4.6 % (0.0-5.0); BG FRACTION INSPIRED OXYGEN 28; BG HCO3 ACT 20.8 mmol/L (22.0-26.0); BG OXYGEN SATURATION 95.4 % (92.0-98.5); BG OXYHEMOGLOBIN 95.3 % (94.0-97.0); BG PCO2 40.9 mmHg (35.0-45.0); BG PH 7.324 (7.350-7.450); BG PO2 81.4 mmHg (75.0-100.0); BG SAMPLE SITE LEFT RADIAL; BG VENT MODE NASAL CANNULA
[2020-06-04 22:59] LABS: BASOPHILS % 0.7 % (0.0-2.0); EOSINOPHILS % 0.6 % (0.0-5.0); HEMATOCRIT. 31.7 % (42.0-52.0); HEMOGLOBIN. 10.3 g/dL (14.0-18.0); LYMPHOCYTES % 10.9 % (20.0-50.0); MEAN CORPUSCULAR VOLUME 89.2 fL (80.0-94.0); MEAN PLATELET VOLUME 7.6 fl (7.4-10.4); MONOCYTES % 6.7 % (2.0-8.0); NEUTROPHILS % 81.1 % (40.0-76.0); PLATELET 226 x1000/uL (130-400); RED BLOOD CELL COUNT 3.56 mill/uL (4.7-6.1); RED CELL DISTRIBUTION WIDTH 16.7 % (11.6-14.6)
[2020-06-04 23:04] LABS: CHLORIDE 99 mEq/L (98-107)
[2020-06-04 23:08] LABS: INR 1.1; PROTHROMBIN TIME 11.8 sec (9.6-11.0)
[2020-06-04] MEDS ORDERED: INSULIN REGULAR (HUMULIN R) 300UNITS/3ML SUBCUT ONE (23:30)
[2020-06-05] MEDS ORDERED: INSULIN REGULAR (HUMULIN R) 300UNITS/3ML IV SCH (02:00)
[2020-06-05] MEDS ORDERED: INSULIN REGULAR (HUMULIN R) UD 100 UNITS/ML SYR IV ONE (02:00)
[2020-06-05] MEDS ORDERED: SODIUM CHLORIDE 0.9% 1,000 ML IV ONE (02:00)
[2020-06-05] MEDS ORDERED: HYDROCODONE/ACETAMINOPHEN 10/325MG TABLET PO PRN (08:00)
[2020-06-05] MEDS ORDERED: GUAIFENESIN 200MG/10ML SUGAR FREE UDC PO PRN (08:00)
[2020-06-05] MEDS ORDERED: DOCUSATE SODIUM 100MG CAPSULE PO PRN (08:00)
[2020-06-05] MEDS ORDERED: DIPHENHYDRAMINE 50MG/ML VIAL IV PRN (08:00)
[2020-06-05] MEDS ORDERED: ONDANSETRON HCL 4MG/2ML INJ IV PRN (08:00)
[2020-06-05] MEDS ORDERED: ACETAMINOPHEN 325MG TABLET PO PRN (08:00)
[2020-06-05] MEDS ORDERED: ENOXAPARIN 40MG/0.4ML SYR SUBCUT SCH (08:00)
[2020-06-05] MEDS ORDERED: IPRATROPIUM/ALBUTEROL 0.5-3(2.5)MG/3ML NEB NEB PRN (08:00)
[2020-06-05] MEDS ORDERED: LORAZEPAM 2MG/ML CPJ IV PRN (08:00)
[2020-06-05] MEDS ORDERED: DEXTROSE 50% WATER 50ML SYRINGE IV PRN (08:00)
[2020-06-05] MEDS ORDERED: CLONIDINE 0.1MG TABLET PO PRN (08:00)
[2020-06-05] MEDS ORDERED: MAGNESIUM/ALUMINUM HYDROXIDE/SIMETHICONE 30ML UDC PO PRN (08:00)
[2020-06-05] MEDS ORDERED: MORPHINE SULFATE 2 MG/ML CPJ (NOT FOR IM USE) IV PRN (08:00)
[2020-06-05] MEDS: BLOOD SUGAR DIAGNOSTIC STRIP TEST SCH ×4 (08:42→21:27)
[2020-06-05] MEDS: HYDRALAZINE 20MG/ML VIAL IV PRN (09:03)
[2020-06-05] MEDS: INSULIN LISPRO 100 UNITS/ML SUBCUT SCH ×4 (09:35→21:32)
[2020-06-05] MEDS: ENOXAPARIN 30MG/0.3ML SYR SUBCUT SCH (09:38)
[2020-06-05] MEDS ORDERED: INSULIN GLARGINE UD 100 UNITS/ML SYR SUBCUT SCH (10:00)
[2020-06-05 12:05] VITALS: BP 140/67
[2020-06-05 12:46] VITALS: BP 140/67
[2020-06-05] MEDS ORDERED: AMLODIPINE 5MG TABLET PO SCH (13:00)
[2020-06-05] MEDS: CHOLECALCIFEROL (D3) 1000 UNIT TABLET PO SCH (14:06)
[2020-06-05] MEDS: ASPIRIN 81MG EC TABLET PO SCH (14:06)
[2020-06-05] MEDS: CALCIUM ACETATE 667MG CAPSULE PO SCH ×2 (14:07→18:05)
[2020-06-05] MEDS: FOLIC ACID/VITAMIN B COMP W-C TABLET PO SCH (14:07)
[2020-06-05] MEDS: SODIUM CHLORIDE 0.9% INJ 3ML FLUSH IVF SCH ×2 (14:11→21:32)
[2020-06-05 14:13] LABS: HEPATITIS B SURFACE ANTIGEN NEGATIVE
[2020-06-05 14:42] LABS: HEPATITIS A AB IGM NEGATIVE (NEGATIVE)
[2020-06-05 16:00] VITALS: BP 159/78
[2020-06-05] MEDS ORDERED: MEDICATION NOT ON FORMULARY EA (Losartan/Hydrochlorothiazide (Losartan-Hctz 100-25 Mg Ta MT SCH (17:00)
[2020-06-05 20:00] VITALS: BP 153/79
[2020-06-05] MEDS: ATORVASTATIN CALCIUM 40MG TABLET PO SCH (20:52)
[2020-06-05] MEDS: CARVEDILOL 12.5MG TABLET PO SCH (20:53)
[2020-06-05] MEDS: INSULIN GLARGINE UD 100 UNITS/ML SYR SUBCUT SCH (22:13)
[2020-06-06] VITALS: BP_SYST 151; BP_SYST 51; BP_DIAS 78
[2020-06-06 04:00] VITALS: BP 171/93
[2020-06-06] MEDS: HYDRALAZINE 20MG/ML VIAL IV PRN (04:27)
[2020-06-06] MEDS: SODIUM CHLORIDE 0.9% INJ 3ML FLUSH IVF SCH ×3 (06:24→21:49)
[2020-06-06] MEDS: BLOOD SUGAR DIAGNOSTIC STRIP TEST SCH ×4 (06:24→21:44)
[2020-06-06 07:02] LABS: BASOPHILS % 0.9 % (0.0-2.0); EOSINOPHILS % 3.4 % (0.0-5.0); HEMATOCRIT. 29.7 % (42.0-52.0); LYMPHOCYTES % 11.9 % (20.0-50.0); MEAN CORPUSCULAR HEMOGLOBIN 29.7 pg (28.0-32.0); MEAN CORPUSCULAR VOLUME 88.2 fL (80.0-94.0); MEAN PLATELET VOLUME 7.7 fl (7.4-10.4); MONOCYTES % 11.7 % (2.0-8.0); NEUTROPHILS % 72.1 % (40.0-76.0); PLATELET 231 x1000/uL (130-400); RED BLOOD CELL COUNT 3.37 mill/uL (4.7-6.1); RED CELL DISTRIBUTION WIDTH 17.7 % (11.6-14.6)
[2020-06-06 07:23] LABS: CHLORIDE 106 mEq/L (98-107)
[2020-06-06] MEDS: INSULIN LISPRO 100 UNITS/ML SUBCUT SCH ×4 (07:28→21:00)
[2020-06-06 07:32] LABS: PHOSPHORUS 2.4 mg/dL (2.5-4.9)
[2020-06-06 07:36] VITALS: BP 148/74
[2020-06-06] MEDS: HYDROCHLOROTHIAZIDE 25MG TABLET PO SCH (09:00)
[2020-06-06] MEDS: LOSARTAN POTASSIUM 100 MG TABLET PO SCH (09:00)
[2020-06-06] MEDS: AMLODIPINE 10MG TABLET PO SCH (09:00)
[2020-06-06] MEDS: CARVEDILOL 12.5MG TABLET PO SCH ×2 (09:00→21:49)
[2020-06-06] MEDS ORDERED: VITAMIN B COMPLEX MT SCH (09:00)
[2020-06-06] MEDS: CHOLECALCIFEROL (D3) 1000 UNIT TABLET PO SCH (09:12)
[2020-06-06] MEDS: FOLIC ACID/VITAMIN B COMP W-C TABLET PO SCH (09:12)
[2020-06-06] MEDS: CALCIUM ACETATE 667MG CAPSULE PO SCH ×3 (09:12→17:38)
[2020-06-06] MEDS: INSULIN GLARGINE UD 100 UNITS/ML SYR SUBCUT SCH ×2 (10:00→21:45)
[2020-06-06 12:04] VITALS: BP 145/79
[2020-06-06] MEDS: ASPIRIN 81MG EC TABLET PO SCH (13:03)
[2020-06-06] MEDS: ENOXAPARIN 30MG/0.3ML SYR SUBCUT SCH (13:04)
[2020-06-06 16:08] VITALS: BP 155/78
[2020-06-06] MEDS: ATORVASTATIN CALCIUM 40MG TABLET PO SCH (21:48)
[2020-06-07] VITALS (7 sets, daily range): BP systolic 139–199; BP diastolic 67–90
[2020-06-07 06:45] LABS: HEMATOCRIT. 30.3 % (42.0-52.0); HEMOGLOBIN. 9.9 g/dL (14.0-18.0); MEAN CORPUSCULAR HEMOGLOBIN 29.1 pg (28.0-32.0); MEAN CORPUSCULAR VOLUME 89.1 fL (80.0-94.0); MEAN PLATELET VOLUME 7.9 fl (7.4-10.4); PLATELET 184 x1000/uL (130-400); RED CELL DISTRIBUTION WIDTH 18.9 % (11.6-14.6)
[2020-06-07] MEDS: SODIUM CHLORIDE 0.9% INJ 3ML FLUSH IVF SCH ×3 (06:50→21:03)
[2020-06-07] MEDS: BLOOD SUGAR DIAGNOSTIC STRIP TEST SCH ×4 (07:30→20:35)
[2020-06-07 07:57] LABS: PHOSPHORUS 2.6 mg/dL (2.5-4.9)
[2020-06-07] MEDS: CALCIUM ACETATE 667MG CAPSULE PO SCH ×3 (09:49→18:24)
[2020-06-07] MEDS: HYDROCHLOROTHIAZIDE 25MG TABLET PO SCH (09:49)
[2020-06-07] MEDS: LOSARTAN POTASSIUM 100 MG TABLET PO SCH (09:49)
[2020-06-07] MEDS: FOLIC ACID/VITAMIN B COMP W-C TABLET PO SCH (09:50)
[2020-06-07] MEDS: CARVEDILOL 12.5MG TABLET PO SCH ×2 (09:50→21:03)
[2020-06-07] MEDS: ASPIRIN 81MG EC TABLET PO SCH (09:51)
[2020-06-07] MEDS: CHOLECALCIFEROL (D3) 1000 UNIT TABLET PO SCH (09:51)
[2020-06-07] MEDS: AMLODIPINE 10MG TABLET PO SCH (09:51)
[2020-06-07] MEDS: ENOXAPARIN 30MG/0.3ML SYR SUBCUT SCH (09:51)
[2020-06-07] MEDS: INSULIN LISPRO 100 UNITS/ML SUBCUT SCH ×4 (10:30→20:35)
[2020-06-07] MEDS: INSULIN GLARGINE UD 100 UNITS/ML SYR SUBCUT SCH ×2 (11:44→21:04)
[2020-06-07] MEDS ORDERED: INSULIN LISPRO 100 UNITS/ML SUBCUT SCH (12:15)
[2020-06-07] MEDS ORDERED: HYDRALAZINE 20MG/ML VIAL IV PRN (14:00)
[2020-06-07] MEDS ORDERED: AZITHROMYCIN 500 MG in DEXT 5% WATER 250 ML IV SCH (14:00)
[2020-06-07] MEDS ORDERED: CEFTRIAXONE 1,000 MG in DEXTROSE 5% WATER 50 ML IV SCH (14:00)
[2020-06-07] MEDS: ATORVASTATIN CALCIUM 40MG TABLET PO SCH (21:03)
[2020-06-07 21:36] LABS: PLATELET ESTIMATE NORMAL
[2020-06-08 00:10] VITALS: BP 145/78
== END 2020-06-08 01:20 | disposition short-term general hospital (02) | DRG 622 ==
LOC: ER 20:45 → 6WST 06-05 01:06 → EDBEDREQ 06-05 01:09 → EDBEDREQTM 06-05 01:09 → ENRESERV 06-05 09:23
PROVIDERS: ADMIT Internal Medicine; ATTEND Internal Medicine
PROC: 5A1D70Z Performance of Urinary Filtration, Intermittent, Less than 6 Hours Per Day (ICD-10-PCS; 2020-06-06)
PROC: 0KBP0ZZ Excision of Left Hip Muscle, Open Approach (ICD-10-PCS; principal; 2020-06-07)
PROC: 0KBN0ZZ Excision of Right Hip Muscle, Open Approach (ICD-10-PCS; 2020-06-07)
PROC: 5A1D70Z Performance of Urinary Filtration, Intermittent, Less than 6 Hours Per Day (ICD-10-PCS; 2020-06-07)
DX: E11.65 Type 2 diabetes mellitus with hyperglycemia (principal); L89.153 Pressure ulcer of sacral region, stage 3; N18.6 End stage renal disease; J96.00 Acute respiratory failure, unspecified whether with hypoxia or hypercapnia; I50.41 Acute combined systolic (congestive) and diastolic (congestive) heart failure; E46 Unspecified protein-calorie malnutrition; I13.2 Hypertensive heart and chronic kidney disease with heart failure and with stage 5 chronic kidney disease, or end stage renal disease; E87.2 Acidosis; R74.0 Nonspecific elevation of levels of transaminase and lactic acid dehydrogenase [LDH]; E11.22 Type 2 diabetes mellitus with diabetic chronic kidney disease; E78.5 Hyperlipidemia, unspecified; D63.1 Anemia in chronic kidney disease; E83.39 Other disorders of phosphorus metabolism; S81.811A Laceration without foreign body, right lower leg, initial encounter; X58.XXXA Exposure to other specified factors, initial encounter; Y93.89 Activity, other specified; Y92.89 Other specified places as the place of occurrence of the external cause; Y99.8 Other external cause status; Z99.2 Dependence on renal dialysis; Z68.30 Body mass index [BMI] 30.0-30.9, adult; Z79.82 Long term (current) use of aspirin
CPT/HCPCS: 36415; 36600; 71045; 76705; 80048; 80053; 82010; 82375; 82805; 82947; 82962; 83735; 84100; 84484; 85025; 86705; 86709; 86803; 87340; 93005; 99285; J0360; J0456; J0696; J1650; J1815; J7030; J7060

== ENCOUNTER 2020-06-18 09:59 | Emergency (ER) | payer OTHER ==
[~2020-06-18] VITALS: Ht 172.7 cm; Wt 80.0 kg
[2020-06-18] MEDS ORDERED: CLINDAMYCIN 600MG PREMIX 50 ML IV ONE (12:30)
[2020-06-18] MEDS ORDERED: CLINDAMYCIN 600 MG in DEXTROSE 5% WATER 50 ML IV ONE (12:30)
[2020-06-18] MEDS ORDERED: VANCOMYCIN 1 G PREMIX 200 ML IV ONE (12:30)
[2020-06-18] MEDS ORDERED: PIPERACILLIN/TAZ 3.375G PREMIX 50 ML IV ONE (12:30)
[2020-06-18] MEDS ORDERED: SODIUM CHLORIDE 0.9% 1000ML BAG (SEPSIS BOLUS) IV ONE (12:30)
[2020-06-18 13:01] LABS: BASOPHILS % 1.2 % (0.0-2.0); EOSINOPHILS % 1.6 % (0.0-5.0); HEMATOCRIT. 31.4 % (42.0-52.0); HEMOGLOBIN. 9.7 g/dL (14.0-18.0); MEAN CORPUSCULAR HEMOGLOBIN 28.5 pg (28.0-32.0); MEAN CORPUSCULAR VOLUME 92.2 fL (80.0-94.0); MEAN PLATELET VOLUME 7.9 fl (7.4-10.4); MONOCYTES % 6.5 % (2.0-8.0); NEUTROPHILS % 79.7 % (40.0-76.0); PLATELET 154 x1000/uL (130-400); RED BLOOD CELL COUNT 3.41 mill/uL (4.7-6.1); RED CELL DISTRIBUTION WIDTH 16.9 % (11.6-14.6)
[2020-06-18 13:11] LABS: CHLORIDE 100 mEq/L (98-107); INR 1.1; PROTHROMBIN TIME 11.5 sec (9.6-11.0)
[2020-06-18 13:14] LABS: ETHANOL BLOOD < 10 mg/dL
[2020-06-18 13:19] LABS: C REACTIVE PROTEIN QUANT 6.2 mg/L (0.0-3.0)
[2020-06-18] MEDS ORDERED: INSULIN REGULAR (HUMULIN R) 300UNITS/3ML SUBCUT ONE (14:15)
[2020-06-18] MEDS ORDERED: FUROSEMIDE 40MG/4ML VIAL IVP ONE (15:15)
[2020-06-18 15:29] VITALS: BP 169/89
== END 2020-06-18 18:01 | disposition short-term general hospital (02) ==
LOC: ER 09:59 → CANBEDREQ 16:43 → ER 18:01
DX: N49.2 Inflammatory disorders of scrotum (principal); R50.9 Fever, unspecified; I12.0 Hypertensive chronic kidney disease with stage 5 chronic kidney disease or end stage renal disease; E11.22 Type 2 diabetes mellitus with diabetic chronic kidney disease; N18.6 End stage renal disease; Z99.2 Dependence on renal dialysis; Z79.82 Long term (current) use of aspirin; Z79.4 Long term (current) use of insulin; Z79.899 Other long term (current) drug therapy
CPT/HCPCS: 36415; 71045; 74176; 76870; 80053; 80320; 83605; 83880; 84145; 84484; 85025; 85610; 86140; 86850; 86900; 86901; 87040; 93005; 93976; 96361; 96365; 96368; 96372; 99285; J1815; J1940; J2543; J3370; J3490; J7030; J7060; G0480